=== PATIENT | female | born 1965 | race Two or more races ===

== ENCOUNTER → 2018-07-25 | Outpatient (CLI) | payer OTHER ==
--- NOTE | 2018-07-25 11:58 | Diagnostic Imaging Report ---
HEPATOBILIARY SCAN INDICATION: 53 F with epigastric pain with nausea and vomiting x 3 weeks. History of pancreatitis. Report: Following the administration of 6.7 mCi of Tc-99m mebrofenin, dynamic images of the abdomen in the anterior projection were obtained through 60 minutes. Perfusion of the liver is normal. Extraction of tracer from the blood pool by the liver parenchyma is normal. Tracer appears promptly with in the biliary tract. Tracer is seen in the gallbladder by 6 minutes post injection of the radiotracer. Tracer is seen in the small bowel by 26 minutes. Impression: Normal HIDA scan. Filling of the gallbladder excludes acute cholecystitis and acute cystic duct obstruction. Signed by: Dr. Alexus Taylor M.D. on 07/25/2018 11:54 AM
== END ==
LOC: NM 07:59 → EDSEX 08:30
PROVIDERS: ATTEND Internal Medicine Gastroenterology
DX: Z12.11 Encounter for screening for malignant neoplasm of colon (principal); R10.13 Epigastric pain; E78.5 Hyperlipidemia, unspecified; I10 Essential (primary) hypertension; E11.9 Type 2 diabetes mellitus without complications; E66.3 Overweight; Z71.3 Dietary counseling and surveillance
CPT/HCPCS: 78226; A9537